=== PATIENT | female | born 2000 | race Caucasian/White ===

== ENCOUNTER 2023-09-16 10:18 | Observation (INO) ==
--- NOTE | 2023-09-16 10:54 | Emergency Department Note ---
History of Present Illness General Chief complaint: Abdominal Pain Stated complaint: ABD PAINS, ONGOING SINCE YESTERDAY Time Seen by Provider: 09/16/23 10:27 History of Present Illness 22-year-old female presents emergency department complaint of right upper quadrant abdominal pain that started at 3 PM yesterday after she had eaten pizza. Patient states that the pain persisted kept her up since 3 AM she had an episode of vomiting. Patient states moderate right upper quadrant pain without radiation. Patient denies any surgical history in the abdomen, denies a history of gallbladder problems. Patient states that the pain is located right upper quadrant is moderate and is nonradiating there are no other mitigating or alleviating factors. Her period was normal approximately 3 weeks ago. Patient denies any vaginal bleeding, urinary symptoms flank pain shortness of breath Home Medications Medication Instructions Recorded Confirmed Type bismuth subsalicylate 262 mg 2 tab PO QID PRN Upset Stomach 09/16/23 09/16/23 History chewable tablet (Pepto-Bismol) Allergies Allergy/AdvReac Type Severity Reaction Status Date / Time No Known Allergies Allergy Unverified 09/16/23 12:59 Past Med/Surg History Social History Smoking Status: Former smoker Feels Safe at Home: Yes Immunizations: Past medical history denies, past surgical history denies Review of Systems A total of 10 systems reviewed and were otherwise negative Gastrointestinal: + abdominal pain Physical Exam Vital Signs Vital Signs - 24 hr 09/16/23 10:21 09/16/23 10:27 09/16/23 11:21 Temperature 36 C L 36.8 C Temperature Source Temporal Artery Scan Oral Pulse Rate 103 H 75 Pulse Rate [Right Finger] 96 H Pulse Rhythm Regular Pulse Rhythm [Right Finger] Regular Pulse Strength [Right Finger] Normal Respiratory Rate 18 20 20 Respiratory Effort / Characteristics Non-Labored Non-Labored Spontaneous Respiratory Depth Normal Normal Respiratory Pattern Regular Regular Blood Pressure 153/73 H Blood Pressure [Right Arm] 158/101 H Blood Pressure Mean 99 Blood Pressure Mean [Right Arm] 120 Blood Pressure Position [Right Arm] Semi-fowlers Pulse Oximetry 96 96 98 Oxygen Delivery Method Room Air Room Air Room Air Sepsis Recent Fever Within 48 Hours No Sepsis New/Unexplained Change in Mental Status N/A Sepsis Action Taken by Nursing No Action Required 09/16/23 12:21 Temperature Temperature Source Pulse Rate 89 Pulse Rate [Right Finger] Pulse Rhythm Pulse Rhythm [Right Finger] Pulse Strength [Right Finger] Respiratory Rate Respiratory Effort / Characteristics Respiratory Depth Respiratory Pattern Blood Pressure Blood Pressure [Right Arm] Blood Pressure Mean Blood Pressure Mean [Right Arm] Blood Pressure Position [Right Arm] Pulse Oximetry Oxygen Delivery Method Sepsis Recent Fever Within 48 Hours Sepsis New/Unexplained Change in Mental Status Sepsis Action Taken by Nursing GENERAL: Patient is awake alert in no acute distress patient is resting comfortably and showing no signs of anxiety EYES: The conjunctivae are clear. The pupils are round and reactive. EARS, NOSE, MOUTH AND THROAT: The nose is without any evidence of any deformity. Mucous membranes are moist. Tongue is midline. NECK: The neck is nontender and supple. RESPIRATORY: Normal respiratory effort is noted there is no evidence of wheezing rhonchi or rales CARDIOVASCULAR: Regular rate and rhythm noted there no murmurs rubs or gallops normal S1 normal S2. GASTROINTESTINAL: The abdomen is soft. Abdomen is mildly tender in the right upper quadrant, there is no rebound rigidity or guarding, there is mild right lower quadrant tenderness BACK: No midline tenderness or or step-off noted range of motion in flexion extension as well as rotation no signs of muscle spasm noted MUSCULOSKELETAL/EXTREMITIES: There is no evidence of gross deformity full range of motion is noted in the hips and shoulders. SKIN: There is no obvious evidence of any rash. There are no petechiae, pallor or cyanosis noted. NEUROLOGIC: Patient is awake alert and oriented x3 strength is symmetric Course Reevaluation(s) Reevaluation #1: Patient was started on IV fluids, IV opiates, Zofran, antibiotics, surgery has seen the patient and they will take the patient the operating room Time: 13:22 Consultations Consultation #1: Seen by the surgeon Dr Tavarez at bedside, will take the patient operating room Time: 13:21 Administered Medications Discontinued Medications Fentanyl Citrate (Fentanyl Citrate Pf 100 Mcg/2 Ml Vial) 50 mcg IV NOW STA Stop: 09/16/23 10:50 Last Admin: 09/16/23 11:02 Dose: 50 mcg Documented By: KOREY Sodium Chloride (Nss) 1,000 mls @ 999 mls/hr IV .Q1H1M ONE Stop: 09/16/23 11:49 Last Admin: 09/16/23 11:07 Dose: 999 mls/hr Documented By: KOREY Ioversol (Optiray 320 100ml) 92 ml IV ONCE ONE Stop: 09/16/23 11:32 Last Admin: 09/16/23 11:32 Dose: 92 ml Documented By: GWEN Morphine Sulfate (Morphine Sulfate 4 Mg/Ml 1 Ml Carp\Vial) 4 mg IV NOW STA Stop: 09/16/23 12:19 Last Admin: 09/16/23 12:51 Dose: 4 mg Documented By: KOREY Ondansetron HCl (Ondansetron Inj 2 Mg/Ml 2 Ml Vial) 4 mg IV NOW STA Stop: 09/16/23 10:50 Last Admin: 09/16/23 11:03 Dose: 4 mg Documented By: KOREY Ondansetron HCl (Ondansetron Inj 2 Mg/Ml 2 Ml Vial) 4 mg IV NOW STA Stop: 09/16/23 12:19 Last Admin: 09/16/23 12:51 Dose: 4 mg Documented By: KOREY Medical Decision Making Medical Records Attestation: I reviewed the patient's medical records. Home Medications Current Medication List: was personally reviewed by nd Laboratory Data Attestation: I reviewed the patient's lab results. Labs interpreted by nd patient has a leukocytosis 09/16/23 10:35 09/16/23 10:35 Lab Results 09/16/23 09/16/23 09/16/23 Range/Units 10:35 10:36 10:48 WBC 13.81 H (4.8-10.8) K/ul RBC 5.08 (4.20-5.40) M/uL Hgb 13.2 (12.0-16.0) g/dl Hct 41.1 (37.0-47.0) % MCV 80.9 (80.0-100.0) fL MCH 26.0 (25.0-34.0) pg MCHC 32.1 (32.0-36.0) g/dL RDW Std Deviation 37.6 (36.4-46.3) fL RDW Coeff of Willem 12.9 (11.5-14.5) % Plt Count 310 (130-400) K/uL MPV 10.4 (9.4-12.4) fL Immature Gran % (Auto) 0.4 % Neut % (Auto) 82.3 % Lymph % (Auto) 11.5 % O'Brien % (Auto) 4.9 % Eos % (Auto) 0.6 % Baso % (Auto) 0.3 % Neut # (Auto) 11.36 H (1.40-6.50) K/uL Lymph # (Auto) 1.59 (1.20-3.40) K/uL O[place]Brien # (Auto) 0.68 H (0.11-0.59) K/uL Eos # (Auto) 0.08 (0.00-0.50) K/uL Baso # (Auto) 0.04 (0.00-0.20) K/uL Immature Gran # (Auto) 0.06 (0.01-0.20) K/uL Sodium 136 (136-145) mmol/L Potassium 4.0 (3.5-5.1) mmol/L Chloride 104 (98-107) mmol/L Carbon Dioxide 25 (21-32) mmol/L Anion Gap 7 (3-11) BUN 11 (6-23) mg/dl Creatinine 0.62 (0.6-1.2) mg/dl Est Cr Clr Drug Dosing 207.1 ml/min Est GFR ( Amer) 149.4 ml/min Est GFR (Non-Af Amer) 128.9 ml/min BUN/Creatinine Ratio 17.7 (10-20) Glucose 109 H (70-99(Fasting)) mg/dl Calcium 9.0 (8.6-10.3) mg/dl Total Bilirubin 0.4 (0.2-1.0) mg/dl AST 16 (13-39) U/L ALT 22 (7-52) U/L Alkaline Phosphatase 54 (34-104) U/L Total Protein 7.0 (6.0-8.3) gm/dl Albumin 4.1 (3.4-5.0) gm/dl Globulin 2.9 (2.5-4.0) gm/dl Albumin/Globulin Ratio 1.4 (0.9-2) Lipase 8 L (11-82) U/L HCG, Qual Negative (Negative) Urine Color Yellow Urine Appearance Clear (Clear) Urine pH 7.5 (4.5-7.5) Ur Specific [place] 1.018 (1.000-1.030) Urine Protein 1+ H (Negative) Urine Glucose (UA) Negative (Negative) Urine Ketones Negative (Negative) Urine Blood Negative (Negative) Urine Nitrite Negative (Negative) Urine Bilirubin Negative (Negative) Urine Urobilinogen Negative (Negative) Ur Leukocyte Esterase 1+ H (Negative) Urine WBC (Auto) 1-5 (0-5) /hpf Urine RBC (Auto) 10-30 H (0-4) /hpf U Hyaline Cast (Auto) 1-5 (0-5) /lpf U Epithel Cells (Auto) >30 H (0-5) /lpf Urine Bacteria (Auto) 1+ H (Negative) POC Ur Test NEG (NEG) Imaging Data Attestation: I personally reviewed and interpreted this imaging study as follows: Radiologist's Impression: Abdomen/Pelvis CT 09/16/23 10:28 CT abd pelvis IV con only CLINICAL HISTORY: abd pain TECHNIQUE: Helical axial images of the abdomen and pelvis were obtained and displayed. Automated dose lowering techniques and/or adjustment according to patient size were utilized for this exam. This exam was performed with intravenous contrast. CT DOSE: 1549.61 mGy.cm COMPARISON: None available at the time of this dictation. FINDINGS: Lower chest: No acute abnormality. Liver: Unremarkable. No focal lesions are seen. Gallbladder and biliary tree: No calcified gallstones. Normal caliber wall. No intra- or extrahepatic biliary ductal dilation. Pancreas: Unremarkable, no focal lesions. Spleen: Unremarkable. Adrenals: Unremarkable. Kidneys and ureters: Unremarkable. Bladder: Unremarkable. Reproductive organs: Unremarkable. Bowel: The appendix measures approximately 8 mm in diameter. Periappendiceal fat stranding is noted. Lymph nodes Retroperitoneal: Unremarkable. Pelvic: Unremarkable. Mesenteric: Unremarkable. Peritoneum: Normal. Vessels: Unremarkable. Abdominal wall: Unremarkable. Bones: Unremarkable. IMPRESSION: The appendix is mildly prominent and there is surrounding fat stranding. Findings may represent mild appendicitis without evidence of perforation or abscess formation. Otherwise no acute abnormalities are seen. ACT 112: Negative or not required by law. Electronically signed by: Salo Zuniga M.D. 09/16/2023 11:51 AM [facility] Narrative Medical decision making differential diagnosis includes cholelithiasis, cholecystitis, biliary colic, gastritis, colitis, metabolic derangement, dehydration, urinary tract infection Plan is to check labs, CT abdomen pelvis, give IV fluids IV Zofran IV fentanyl Patient was found to have appendicitis, the case wasl referred to surgery who will take the patient the operating room Impression & Plan Acute appendicitis Discharge Plan Visit Data Chief Complaint: Abdominal Pain Stated Complaint: ABD PAINS, ONGOING SINCE YESTERDAY ED Provider: Jay Mendez Discharge Problem: Acute appendicitis Patient Disposition: Admitted As Inpatient Forms Stand Alone Forms: [facility] [place] Prescriptions Prescriptions: No Action bismuth subsalicylate [Pepto-Bismol] 262 mg Tablet,Chewable 2 tab PO QID PRN (Reason: Upset Stomach) Referrals Referrals: PCP,NO [Physician] -
[2023-09-16 10:55] LABS: Basophils # (auto) 0.04 K/uL (0.00-0.20); Basophils % (auto) 0.3 %; Eosinophils # (auto) 0.08 K/uL (0.00-0.50); Eosinophils % (auto) 0.6 %; Hematocrit (blood only) 41.1 % (37.0-47.0); Hemoglobin 13.2 g/dl (12.0-16.0); Immature Granulocytes # (auto) 0.06 K/uL (0.01-0.20); Immature Granulocytes % (auto) 0.4 %; Lymphocytes # (auto) 1.59 K/uL (1.20-3.40); Lymphocytes % (auto) 11.5 %; Mean Corpuscular Hgb Conc 32.1 g/dL (32.0-36.0); Mean Corpuscular Volume 80.9 fL (80.0-100.0); Mean Platelet Volume 10.4 fL (9.4-12.4); Monocytes # (auto) 0.68 K/uL (0.11-0.59); Monocytes % (auto) 4.9 %; Neutrophils # (auto) 11.36 K/uL (1.40-6.50); Neutrophils % (auto) 82.3 %; Platelet Count 310 K/uL (130-400); RDW Coefficient of Variation 12.9 % (11.5-14.5); RDW Standard Deviation 37.6 fL (36.4-46.3); Red Blood Count 5.08 M/uL (4.20-5.40); White Blood Count 13.81 K/ul (4.8-10.8)
[2023-09-16 11:00] LABS: Appearance Urine Clear (Clear); Bacteria Urine Automated 1+ (Negative); Bilirubin Urine Negative (Negative); Blood Urine Negative (Negative); Color Urine Yellow; Epithelial Cell Urine Auto >30 /lpf (0-5); Glucose Urine UA Negative (Negative); Ketones Urine Negative (Negative); Leukocyte Esterase Urine 1+ (Negative); Nitrite Urine Negative (Negative); Specific Gravity Urine 1.018 (1.000-1.030); Urobilinogen Urine Negative (Negative); pH Urine 7.5 (4.5-7.5)
[2023-09-16] MEDS: fentaNYL citrate PF 100 MCG/2 ML VIAL IV STA (11:02)
[2023-09-16] MEDS: ONDANSETRON INJ 2 MG/ML 2 ML VIAL IV STA ×2 (11:03→12:51)
[2023-09-16] MEDS: SODIUM CHLORIDE 0.9% 1,000 ML IV ONE (11:07)
[2023-09-16 11:10] LABS: Albumin Globulin Ratio 1.4 (0.9-2); Albumin Level 4.1 gm/dl (3.4-5.0); BUN Creatinine Ratio 17.7 (10-20); Bilirubin,Total 0.4 mg/dl (0.2-1.0); Creatinine Clr Calc Pharmacy 207.1 ml/min; Est GFR (African American) 149.4 ml/min; Est GFR (Non-African American) 128.9 ml/min; Globulin 2.9 gm/dl (2.5-4.0)
[2023-09-16 11:12] LABS: Pregnancy Test, Serum Negative (Negative)
[2023-09-16 11:16] LABS: Protein Urine 1+ (Negative)
[2023-09-16] MEDS: OPTIRAY 320 100ml IV ONE (11:32)
--- NOTE | 2023-09-16 11:53 | CT Scan Report ---
CT abd pelvis IV con only CLINICAL HISTORY: abd pain TECHNIQUE: Helical axial images of the abdomen and pelvis were obtained and displayed. Automated dose lowering techniques and/or adjustment according to patient size were utilized for this exam. This e xam was performed with intravenous contrast. CT DOSE: 1549.61 mGy.cm COMPARISON: None available at the time of this dictation. FINDINGS: Lower chest: No acute abnormality. Liver: Unremarkable. No focal lesions are seen. Gallbladder and biliary tree: No calcified gallstones. Normal caliber wall. No intra- or extrahepatic biliary ductal dilation. Pancreas: Unremarkable, no focal lesions. Spleen: Unremarkable. Adrenals: Unremarkable. Kidneys and ureters: Unremarkable. Bladder: Unremarkable. Reproductive organs: Unremarkable. Bowel: The appendix measures approximately 8 mm in diameter. Periappendiceal fat stranding is noted. Lymph nodes Retroperitoneal: Unremarkable. Pelvic: Unremarkable. Mesenteric: Unremarkable. Peritoneum: Normal. Vessels: Unremarkable. Abdominal wall: Unremarkable. Bones: Unremarkable. IMPRESSION: The appendix is mildly prominent and there is surrounding fat stranding. Findings may represent mild appendicitis without evidence of perforation or abscess formation. Otherwise no acute abnormalities a re seen. ACT 112: Negative or not required by law. Electronically signed by: Salo Zuniga M.D. 09/16/2023 11:51 AM
--- NOTE | 2023-09-16 12:45 | History & Physical Report ---
<Statement entered by Moris Tavarez MD - 09/16/23 13:15> The patient was seen and examined and agree with the above plan. Date of Service September 16, 2023 Assessment & Plan (1) RUQ abdominal pain: (2) Acute appendicitis: Plan: 22 yo female with 1 day history of right sided abdominal pain with associated nausea and vomiting. Leukocytosis of 13k and ct scan showing dilated appendix at 8 mm with periappendiceal stranding consistent with early acute appendicitis. Discussed imaging findings with patient. Recommend laparoscopic appendectomy. Dr. Tavarez discussed laparoscopic appendectomy, risks and expected recovery. informed consent obtained. Will give 2 gms Cefoxitin. Keep NPO Dr. Tavarez has seen and examined patient, agrees with above. History of Present Illness Chief Complaint: Right upper abdominal pain Primary Care Provider: [facility] Alayna is a 22 yo female with no significant medical history who presented to ED with 1 day history of right upper abdominal pain with associated nausea and vomiting. States she had pain in the right upper abdomen yesterday morning and then had some pizza and pain continued to increase in severity and got worse around 3 am this morning. Nothing seemed to alleviate the pain. Took Pepto Bis mol without relief. Denies fever, chills, changes in bowel habits, blood in stools, difficulty urinating , or blood in urine. Never had similar pain in the past. No gallbladder issues. Allergies Allergy/AdvReac Type Severity Reaction Status Date / Time No Known Allergies Allergy Unverified 09/16/23 12:59 Past Med/Surg History Social History Smoking Status: Former smoker Feels Safe at Home: Yes Physical Exam Constitutional: WD/WN, vitals as above + obese and cooperative; no acute distress and not ill appearing Respiratory: normal respiratory effort, lungs clear to auscultation Cardiovascular: RRR, no murmur, no edema Gastrointestinal (Abdomen): Inspection/Auscultation: abdomen normal to inspection and normal bowel sounds; abdomen not distended Percussion/Palpation: + abdomen tender (RUQ, right flank and RLQ) and abdomen soft; no guarding, abdomen not rigid and abdomen not firm Skin: no rashes, warm and dry Psychiatric: A+Ox3, euthymic affect Results & Data Results & Data Vital Signs (Past 12 Hours) Vital Signs Temp Pulse Pulse Resp BP BP Pulse Ox 09/16/23 12:21 89 09/16/23 11:21 36.8 C 96 H 20 158/101 H 98 09/16/23 10:27 75 20 96 09/16/23 10:21 36 C L 103 H 18 153/73 H 96 O2 Del Method 09/16/23 12:21 09/16/23 11:21 Room Air 09/16/23 10:27 Room Air 09/16/23 10:21 Room Air Laboratory Results 09/16/23 09/16/23 09/16/23 Range/Units 10:48 10:36 10:35 WBC 13.81 H (4.8-10.8) K/ul RBC 5.08 (4.20-5.40) M/uL Hgb 13.2 (12.0-16.0) g/dl Hct 41.1 (37.0-47.0) % MCV 80.9 (80.0-100.0) fL MCH 26.0 (25.0-34.0) pg MCHC 32.1 (32.0-36.0) g/dL RDW Std Deviation 37.6 (36.4-46.3) fL RDW Coeff of Willem 12.9 (11.5-14.5) % Plt Count 310 (130-400) K/uL MPV 10.4 (9.4-12.4) fL Immature Gran % (Auto) 0.4 % Neut % (Auto) 82.3 % Lymph % (Auto) 11.5 % [place] % (Auto) 4.9 % Eos % (Auto) 0.6 % Baso % (Auto) 0.3 % Neut # (Auto) 11.36 H (1.40-6.50) K/uL Lymph # (Auto) 1.59 (1.20-3.40) K/uL Maury # (Auto) 0.68 H (0.11-0.59) K/uL Eos # (Auto) 0.08 (0.00-0.50) K/uL Baso # (Auto) 0.04 (0.00-0.20) K/uL Immature Gran # (Auto) 0.06 (0.01-0.20) K/uL Sodium 136 (136-145) mmol/L Potassium 4.0 (3.5-5.1) mmol/L Chloride 104 (98-107) mmol/L Carbon Dioxide 25 (21-32) mmol/L Anion Gap 7 (3-11) BUN 11 (6-23) mg/dl Creatinine 0.62 (0.6-1.2) mg/dl Est Cr Clr Drug Dosing 207.1 ml/min Est GFR ( Amer) 149.4 ml/min Est GFR (Non-Af Amer) 128.9 ml/min BUN/Creatinine Ratio 17.7 (10-20) Glucose 109 H (70-99(Fasting)) mg/dl Calcium 9.0 (8.6-10.3) mg/dl Total Bilirubin 0.4 (0.2-1.0) mg/dl AST 16 (13-39) U/L ALT 22 (7-52) U/L Alkaline Phosphatase 54 (34-104) U/L Total Protein 7.0 (6.0-8.3) gm/dl Albumin 4.1 (3.4-5.0) gm/dl Globulin 2.9 (2.5-4.0) gm/dl Albumin/Globulin Ratio 1.4 (0.9-2) Lipase 8 L (11-82) U/L HCG, Qual Negative (Negative) Urine Color Yellow Urine Appearance Clear (Clear) Urine pH 7.5 (4.5-7.5) Ur Specific [place] 1.018 (1.000-1.030) Urine Protein 1+ H (Negative) Urine Glucose (UA) Negative (Negative) Urine Ketones Negative (Negative) Urine Blood Negative (Negative) Urine Nitrite Negative (Negative) Urine Bilirubin Negative (Negative) Urine Urobilinogen Negative (Negative) Ur Leukocyte Esterase 1+ H (Negative) Urine WBC (Auto) 1-5 (0-5) /hpf Urine RBC (Auto) 10-30 H (0-4) /hpf U Hyaline Cast (Auto) 1-5 (0-5) /lpf U Epithel Cells (Auto) >30 H (0-5) /lpf Urine Bacteria (Auto) 1+ H (Negative) POC Ur Test NEG (NEG) Diagnostic Findings CT abd pelvis IV con only CLINICAL HISTORY: abd pain TECHNIQUE: Helical axial images of the abdomen and pelvis were obtained and displayed. Automated dose lowering techniques and/or adjustment according to patient size were utilized for this exam. This exam was performed with intravenous contrast. CT DOSE: 1549.61 mGy.cm COMPARISON: None available at the time of this dictation. FINDINGS: Lower chest: No acute abnormality. Liver: Unremarkable. No focal lesions are seen. Gallbladder and biliary tree: No calcified gallstones. Normal caliber wall. No intra- or extrahepatic biliary ductal dilation. Pancreas: Unremarkable, no focal lesions. Spleen: Unremarkable. Adrenals: Unremarkable. Kidneys and ureters: Unremarkable. Bladder: Unremarkable. Reproductive organs: Unremarkable. Bowel: The appendix measures approximately 8 mm in diameter. Periappendiceal fat stranding is noted. Lymph nodes Retroperitoneal: Unremarkable. Pelvic: Unremarkable. Mesenteric: Unremarkable. Peritoneum: Normal. Vessels: Unremarkable. Abdominal wall: Unremarkable. Bones: Unremarkable. IMPRESSION: The appendix is mildly prominent and there is surrounding fat stranding. Findings may represent mild appendicitis without evidence of perforation or abscess formation. Otherwise no acute abnormalities are seen. Code Status & VTE Plan VTE Prophylaxis Plan VTE Prophylaxis will be ordered: Yes
[2023-09-16] MEDS: MoRPHine SULFATE 4 MG/ML 1 ML CARP\\VIAL IV STA (12:51)
[2023-09-16] MEDS: cefOXitin 2,000 MG in DEXTROSE 5 % MINI-B 50 ML IV STA (13:51)
[2023-09-16] MEDS: LACTATED RINGER'S 1,000 ML IV SCH ×2 (14:25→17:49)
[2023-09-16] MEDS: HYDROmorphone INJ 0.5 MG/0.5 ML SYR IV STA (14:31)
[2023-09-16] MEDS: HYDROmorphone INJ 0.5 MG/0.5 ML SYR ONE (14:31)
[2023-09-16] MEDS ORDERED: ONDANSETRON INJ 2 MG/ML 2 ML VIAL IV PRN ×3 (15:03→17:40)
[2023-09-16] MEDS ORDERED: ePHEDrine sulfate 50 MG/ML AMP IV PRN (15:03)
[2023-09-16] MEDS ORDERED: fentaNYL citrate PF 100 MCG/2 ML VIAL IV PRN (15:03)
[2023-09-16] MEDS ORDERED: ATROPINE SULFATE 0.1 MG/ML 10ML SYR IV PRN (15:03)
[2023-09-16] MEDS ORDERED: PROMETHAZINE HCL 6.25 MG in SODIUM CHLORIDE 0.9% 50 ML IV PRN (15:03)
[2023-09-16] MEDS ORDERED: HYDROmorphone INJ 2 MG/ML SYR/VIAL IV PRN (15:03)
--- NOTE | 2023-09-16 15:03 | Anesthesiology Consultation ---
Date of Service September 16, 2023 Assessment & Plan Chart Review Chart Review: Acceptable Risk for Surgery and Patient NOT seen in Pre Admission Testing Consults Requested none ASA [id number] Proposed Anesthesia Anesthesia Type: General Risk / Benefits Reviewed With: PT / POA / Parent / Guardian, Accepts Plan and Informed Consent Obtained History Surgery Operation Date: 09/16/23 07:00 Proposed Procedures p Laparoscopic Appendectomy - Moris Tavarez MD Height/Weight Height: 5 ft 10 in Weight: 125.8 kg Allergies Allergy/AdvReac Type Severity Reaction Status Date / Time No Known Allergies Allergy Unverified 09/16/23 12:59 Medications Home Medications Medication Instructions Recorded Confirmed Last Taken bismuth subsalicylate 262 mg 2 tab PO QID PRN Upset Stomach 09/16/23 09/16/23 09/16/23 chewable tablet (Pepto-Bismol) Active Medications Generic Name Dose Route Start Last Admin Trade Name Freq PRN Reason Stop Dose Admin Lactated Ringer's 1,000 mls @ 15 mls/hr 09/16/23 14:30 09/16/23 14:25 Lr IV 10/16/23 14:29 15 mls/hr .Q24H [place] Administration NPO Date Last Intake of Fluids: 09/16/23 Time Last Intake of Fluids: 03:00 Last Intake of Fluids Comment: sip of water 1100 Date Last Intake of Solids: 09/16/23 Time Last Intake of Solids: 00:00 Last Intake of Solids Comment: "gummy worms" Exercise / Class Metabolic Activity II 4-5 Yardwork/Stairs/Walk up hill Past Anesthesia History No Hx of Anesthesia Complications and No Family Hx of Anesthesia Complications History of PONV No Hx of PONV and No Hx of Motion Sickness Social History Smoking Status: Former smoker Physical Exam Vital Signs Last Vital Signs Temp 36.6 C 09/16/23 14:00 Pulse 85 09/16/23 14:00 Resp 18 09/16/23 14:00 BP 153/89 H 09/16/23 14:00 Pulse Ox 98 09/16/23 14:00 O2 Del Method Room Air 09/16/23 14:00 Constitutional + obese ENMT Mouth: no dentition abnormality Thyromental Distance: > or= 3.5 Finger Breadths Mallampati Class: II Neck normal visual inspection Respiratory normal respiratory effort Auscultation: lungs clear to auscultation bilaterally Cardiovascular Rate/Rhythm: regular rate and regular rhythm Psychiatric Orientation: alert Testing Laboratory Results 09/16/23 10:35 09/16/23 10:35 Urine Color Yellow 09/16/23 10:36 Urine Appearance Clear (Clear) 09/16/23 10:36 Urine pH 7.5 (4.5-7.5) 09/16/23 10:36 Ur Specific [place] 1.018 (1.000-1.030) 09/16/23 10:36 Urine Protein 1+ (Negative) H 09/16/23 10:36 Urine Glucose (UA) Negative (Negative) 09/16/23 10:36 Urine Ketones Negative (Negative) 09/16/23 10:36 Urine Nitrite Negative (Negative) 09/16/23 10:36 Ur Leukocyte Esterase 1+ (Negative) H 09/16/23 10:36 Urine WBC (Auto) 1-5 /hpf (0-5) 09/16/23 10:36 Urine RBC (Auto) 10-30 /hpf (0-4) H 09/16/23 10:36 U Hyaline Cast (Auto) 1-5 /lpf (0-5) 09/16/23 10:36 U Epithel Cells (Auto) >30 /lpf (0-5) H 09/16/23 10:36 Urine Bacteria (Auto) 1+ (Negative) H 09/16/23 10:36 09/16/23 10:48 POC Ur Test NEG
[2023-09-16] MEDS ORDERED: LIDOCAINE 2% 2 ML VIAL/AMP(20MG/ML) INFIL ONE (15:12)
[2023-09-16] MEDS ORDERED: ROCURONIUM BROMIDE 10 MG/ML 5 ML VIAL IV ONE (15:12)
[2023-09-16] MEDS ORDERED: PROPOFOL IV EMULSION 10 MG/ML 20 ML VIAL IV ONE (15:12)
[2023-09-16] MEDS ORDERED: MIDAZOLAM HCL 1 MG/ML 2ML VIAL ONE (15:12)
[2023-09-16] MEDS ORDERED: fentaNYL citrate PF 100 MCG/2 ML VIAL ONE ×2 (15:13→15:59)
[2023-09-16] MEDS ORDERED: ACETAMINOPHEN 1000 MG/100 ML IV IV ONE (15:17)
[2023-09-16] MEDS: BUPIVACAINE/EPINEPHRINE 0.5% MPF 1:200,000 30 ML VIAL ONE (15:50)
[2023-09-16] MEDS ORDERED: DEXAMETHASONE SOD INJ 4 MG/ML VIAL ONE (15:51)
[2023-09-16] MEDS ORDERED: ONDANSETRON INJ 2 MG/ML 2 ML VIAL ONE (15:51)
[2023-09-16] MEDS ORDERED: SUGAMMADEX SODIUM 200 MG/2 ML VIAL IV ONE ×2 (15:52→15:56)
[2023-09-16] MEDS ORDERED: KETOROLAC 30 MG/ML VIAL ONE (15:53)
--- NOTE | 2023-09-16 16:00 | Post Operative Brief Note ---
Immediate Post Op Note v1 Date of Surgery September 16, 2023 Pre & Post Diagnosis Operation Date: 09/16/23 07:00 Pre-Op Diagnosis: Acute Appendicitis Post-Op Diagnosis: Acute Appendicitis I identified the patient and participated in the time-out.: Yes Procedure Operation Date: 09/16/23 07:00 Actual Procedures p Laparoscopic Appendectomy(Not Applicable) - Moris Tavarez MD Surgeon Moris Tavarez MD S[employer]der Helper Silva Amaya PA-C Estimated Blood Loss 10 Findings Consistent with Post-Op Diagnosis
--- NOTE | 2023-09-16 16:03 | Operative Report ---
Post Operative Report Pre & Post Diagnosis Operation Date: 09/16/23 07:00 Pre-Op Diagnosis: Acute Appendicitis Post-Op Diagnosis: Acute Appendicitis I identified the patient and participated in the time-out.: Yes Procedure Operation Date: 09/16/23 07:00 Actual Procedures p Laparoscopic Appendectomy(Not Applicable) - Moris Tavarez MD Surgeon Moris Tavarez MD Plans Examiner Silva Amaya PA-C Estimated Blood Loss 10 Findings Consistent with Post-Op Diagnosis Acute appendicitis, uncomplicated. Specimens Appendix to pathology Drains None Anesthesia Type General Complications None Indications This is a 21-year-old female admitted through the ED with acute abdominal pain. CT scan shows an early appendicitis. She is a white count which is elevated. Talked in detail and recommended a laparoscopic appendectomy. She understands the risk and wishes to proceed. Description of Procedure The patient was taken to the OR and underwent excellent general anesthesia. Their abdomen was prepped and draped in normal sterile fashion. A transverse supraumbilical incision was made, towel clamps were used to create tension on the abdominal wall. A varies needle was inserted gently into the peritoneal cavity. Good pneumoperitoneum was achieved to about 15 mmHg pressure. Once this was done visualized 11 port was placed in the supraumbilical position. A 12 mm left lower quadrant port , a 5mm suprapubic port , and a 5mm right upper quadrant port were placed in normal fashion. Patient was then placed in head down and rolled to the left. A good diagnostic lap was performed. They had obvious acute appendicitis. The cecum was grasped with an atraumatic grasper. A grasper was then was then used to grasp the tip of the appendix. The mesoappendix was splayed open and a harmonic scalpel was used to take down the mesoappendix. The base of the appendix was identified. An Endo GAMALIEL stapler was used to transect the appendix at its base. A Endobag was then inserted through the left lower quadrant port and the appendix was placed into the bag, The bag was removed through the left lower quadrant port. The appendix was then sent for pathologic valuation. Pneumoperitoneum was re-established and the port replaced. A liter of saline was then used to irrigate the abdomen. There was no active bleeding nor any other abnormalities noted in the abdomen. Patient was then placed back in neutral position and the ports were removed the pneumoperitoneum decompressed. The skin was then anesthetized with 0.5% Marcaine with epinephrine local. Interrupted Vicryl is used to close the skin. Dermabond was used to reinforce the incisions. Sterile dressings were applied. Patient tolerated procedure without complication was sent to the postop recovery period of observation. They will be sent to the floor for the rest of their care. I attest to the content of the Intraoperative Record and any orders documented therein. Any exceptions are noted below.
--- NOTE | 2023-09-16 16:50 | Anesthesiology Progress Note ---
Date of Service September 16, 2023 Anesthesia Post Procedure Vital Signs Vital Signs: Temp Pulse Pulse Pulse Resp BP BP 09/16/23 16:30 92 H 19 124/62 09/16/23 16:20 98 H 16 121/73 09/16/23 16:11 37.1 C 113 H 18 144/65 H 09/16/23 14:00 36.6 C 85 18 153/89 H 09/16/23 13:57 36.8 C 89 18 157/115 H 09/16/23 12:21 89 09/16/23 11:21 36.8 C 96 H 20 158/101 H 09/16/23 10:27 75 20 09/16/23 10:21 36 C L 103 H 18 153/73 H Pulse Ox O2 Del Method O2 Flow Rate 09/16/23 16:30 93 Room Air 09/16/23 16:20 99 Oxymask 4 09/16/23 16:11 100 Oxymask 6 09/16/23 14:00 98 Room Air 09/16/23 13:57 98 Room Air 09/16/23 12:21 09/16/23 11:21 98 Room Air 09/16/23 10:27 96 Room Air 09/16/23 10:21 96 Room Air Pain Intensity Abdomen: Pain Intensity: 3 Transfer of Care Handoff Completed per policy Notes Mental Status: alert / awake / arousable Patient Amnestic to Procedure: Yes Nausea / Vomiting: adequately controlled Pain: adequately controlled Airway Patency, RR, SpO2: stable & adequate BP & HR: stable & adequate Hydration State: stable & adequate Anesthetic Complications: no major complications apparent
[2023-09-16] MEDS ORDERED: oxyCODONE/ACETAMINOPHEN 5mg/325mg TAB PO PRN ×2 (17:40)
[2023-09-16] MEDS ORDERED: MoRPHine SULFATE 4 MG/ML 1 ML CARP\\VIAL IV PRN (17:40)
[2023-09-16] MEDS ORDERED: MoRPHine SULFATE 2 MG/ML CARP IV PRN (17:40)
[2023-09-17] MEDS: ACETAMINOPHEN 325 MG TAB PO PRN (05:59)
--- NOTE | 2023-09-17 09:53 | Discharge Summary ---
Date of Service September 17, 2023 Admission HPI Per Admitting Provider Alayna is a 22 yo female with no significant medical history who presented to ED with 1 day history of right upper abdominal pain with associated nausea and vomiting. States she had pain in the right upper abdomen yesterday morning and then had some pizza and pain continued to increase in severity and got worse around 3 am this morning. Nothing seemed to alleviate the pain. Took Pepto Bismol without relief. Denies fever, chills, changes in bowel habits, blood in stools, difficulty urinating , or blood in urine. Never had similar pain in the past. No gallbladder issues. Principal Diagnosis Acute appendicitis Discharge Exam Constitutional WD/WN, vitals as above cooperative and comfortable; no acute distress and not ill appearing Respiratory normal respiratory effort; no respiratory distress, no labored breathing and no retractions Gastrointestinal (Abdomen) Inspection/Auscultation: abdomen normal to inspection, + abdominal surgical incision (clean/dry/intact with dermabond) and + hypoactive bowel sounds; abdom en not distended and + abnormal bowel sounds Percussion/Palpation: + abdomen tender (mild at incision sites, appropriate postop) and abdomen soft; no guarding and abdomen not rigid Skin no rashes, warm and dry Psychiatric A+Ox3, euthymic affect Discharge Data Allergies Allergy/AdvReac Type Severity Reaction Status Date / Time No Known Allergies Allergy Unverified 09/16/23 12:59 Consultations 09/16/23 13:16 ED Decision to Admit Stat Procedures Performed Operation Date: 09/16/23 07:00 Actual Procedures p Laparoscopic Appendectomy(Not Applicable) - Moris Tavarez MD Ordered Studies 09/16/23 10:28 CT abd pelvis IV con only Stat Hospital Course (1) RUQ abdominal pain: (2) Acute appendicitis: Patient was taken to operating room for laparoscopic appendectomy on 09/16/[address] Tavarez. Patient found to have acute appendicitis without perforation or abscess and tolerated procedure without difficulty. She was transferred to medical/surgical floor postoperatively. Her diet was advanced as tolerated and pain management prn. POD # 1 , avss, postop pain controlled with oral Tylenol, tolerated diet. She was discharged home on POD # 1 in stable condition. Total Time Total Time Spent Total Time Spent (In Minutes): 30 minutes Total Time Includes: Examination of the Patient, Discharge Planning and Medication Reconciliation Discharge Plan Discharge Items Patient Disposition: Home - Self-Care Reason For Visit: APPENDICITIS Discharge Diagnosis: Acute Appendicitis Activity: Per Instructions section Non-emergency contact: Surgeon Call non-emergency contact if: you have any medication questions, your pain is not controlled, you have a fever, your temperature is above 101, your wound has increased redness, your wound has increased drainage and your wound pain has increased Follow-up/Referrals: Silva Amaya PA-C [Physician Co Founder] - (1-2 weeks) PCP,HODAN [Physician] - Diet: Regular Addtl Attending Provider Instructions: Post-Surgical ~Discharge Instructions Activity Recommendations: - lifting limitation: (20 pounds for 3-4 weeks), - exercise/sex/sports limit: (nonstrenuous for 2 weeks), - driving or machine use limit: (none for 1 week or until pain free and no longer taking narcotic pain medication), - Shower/bathe limit: (may shower) Diet: - Resume previous diet SPECIAL CARE INSTRUCTIONS: - May shower. Let water run over area and pat dry. No submerging underwater for 2 weeks (no bathing, swimming, hot tubs) - Leave surgical glue on incisions. This will fall off on its own - Call the surgeon's office with any questions or concerns - - (ex. temperature higher than 101 degrees F, excessive bleeding or pain). MEDICATIONS: - Resume previous medications unless instructed otherwise by your surgeon. - May alternate extra strength Tylenol and Ibuprofen as needed for mild to moderate pain -650 mg Tylenol every 6 hours as needed - Ibuprofen 600 mg every 6 hours as needed take with food - Percocet 1 every 6 hours, as needed for moderate to severe pain - Recommend daily stool softener (Colace) while taking narcotic pain medication to prevent constipation or straining. Drink plenty of water daily. FOLLOW UP VISIT: - If not already scheduled, please call the office to schedule a one- two week follow-up appointment. Office number Pending Studies at Discharge: Yes (appendix pathology, will be reviewed at postop visit) Stand-Alone Forms: [employer], Work/School Release, Smoking Cessation Medications and DC Order Prescriptions: New oxycodone-acetaminophen [Percocet] 5-325 mg tablet 1 tab PO Q6H PRN (Reason: pain (scale score 7-10)) Qty: 5 0RF Continued bismuth subsalicylate [Pepto-Bismol] 262 mg Tablet,Chewable 2 tab PO QID PRN (Reason: Upset Stomach) Discharge Orders: Discharge Order (Routine); Ordered 09/17/23 Ordered By: Silva Amaya Admission Data Admit Date/Time: 09/16/23 16:07 Attending Provider: Moris Tavarez Admit Provider: Moris Tavarez Primary Care Provider: [facility] Other Providers: Moris Tavarez
== END 2023-09-17 11:08 | disposition home or self-care (01) ==
LOC: ED 10:18 → 3W 13:57 → ED 13:57 → OR 13:57